=== PATIENT | male | born 1950 | race Caucasian/White ===

== ENCOUNTER → 2016-03-21 | Day surgery (SDC) | payer OTHER ==
[~2016-03-21] MED LIST: ALPR0.5T99 PO; CALC-137 PO; CARV12.52 PO; FEXO180T PO; FURO20TA PO; HYDR10SO PO; LACTATED RINGER'S 1000 ML INJ 1,000 ML ONE; PLAV75TA PO; PRAV20 PO; PROPOFOL 500 MG/50 ML BTL IV ONE; RAMI10CA35 PO; RIVA10 PO; SERT100 PO; SPIR25TA PO; ST JTAB PO; VITA20002 PO; WALKER STANDARD; ZOLP10TA3 PO
== END | disposition home or self-care (01) ==
LOC: ESDC 06:44
PROVIDERS: ATTEND Surgery
DX: R13.10 Dysphagia, unspecified (principal); K44.9 Diaphragmatic hernia without obstruction or gangrene; E66.01 Morbid (severe) obesity due to excess calories
CPT/HCPCS: 00740; 43239; 88305; 88312; J3010; J7120